=== PATIENT | female | born 1990 | race Caucasian/White ===

== ENCOUNTER 2018-12-03 18:02 | Emergency (ER) | payer OTHER ==
[~2018-12-03] VITALS: Ht 165.1 cm; Wt 68.0 kg
[~2018-12-03 18:02] MED LIST: PNEU16DI2; PRENATAL VITAM1 EACH PO
== END 2018-12-03 21:09 | disposition home or self-care (01) ==
LOC: ER 18:02
DX: M54.2 Cervicalgia (principal); R51 Headache; B34.9 Viral infection, unspecified

== ENCOUNTER → 2019-05-19 | Emergency (ER) | payer OTHER ==
[~2019-05-19] VITALS: Ht 165.1 cm; Wt 70.3 kg
[~2019-05-19] MED LIST changes: +GILPHEX TR TAB1 EACH PO; +OSEL75CA PO
== END | disposition home or self-care (01) ==
LOC: ER 04:28
DX: J11.1 Influenza due to unidentified influenza virus with other respiratory manifestations (principal)